=== PATIENT | male | born 1965 | race African-American/Black ===

== ENCOUNTER 2020-10-16 16:43 | Inpatient (IN) | payer OTHER ==
[2020-10-16] MEDS ORDERED: MAGNESIUM CITRATE 300 ML BOTTLE PO PRN (19:19)
[2020-10-16] MEDS ORDERED: diazePAM 5 MG TABLET PO PRN (19:19)
[2020-10-16] MEDS ORDERED: MENTHOL/PHENOL 1 EACH UD MM PRN (19:19)
[2020-10-16] MEDS ORDERED: ONDANSETRON *ODT* 4 MG TABLET SL PRN (19:19)
[2020-10-16] MEDS ORDERED: IBUPROFEN 400 MG TABLET (FP) PO PRN (19:19)
[2020-10-16] MEDS ORDERED: MAG HYDROX/AL HYDROX/SIMETH 30 ML UNIT-DOSE CUP PO PRN (19:19)
[2020-10-16] MEDS ORDERED: ACETAMINOPHEN 325 MG TABLET (FP) PO PRN ×2 (19:19)
[2020-10-16] MEDS ORDERED: NICOTINE 10 MG CARTRIDGE (INHALER) IH PRN (19:19)
[2020-10-16] MEDS ORDERED: MAGNESIUM HYDROX 2400MG/30ML ORAL SUSPENSION 30 ML CUP PO PRN (19:19)
[2020-10-16] MEDS ORDERED: BISMUTH SUBSALICYLATE 524 MG/30 ML PO PRN (19:19)
[2020-10-16] MEDS ORDERED: METHOCARBAMOL 500 MG TABLET PO PRN (19:19)
[2020-10-16] MEDS ORDERED: AZITHROMYCIN 250 MG TABLET PO ONE (19:55)
[2020-10-17] MEDS: THIAMINE HCL 100 MG TABLET (FP) PO SCH ×2 (01:48→22:32)
[2020-10-17] MEDS: PRENATAL VITAMINS W/ FOLIC ACID TABLET (FP) PO SCH ×2 (01:48→10:30)
[2020-10-17] MEDS: hydrOXYzine PAMOATE 25 MG CAPSULE (FP) PO SCH ×6 (01:48→22:32)
[2020-10-17] MEDS: MELATONIN 5 MG TABLETS PO SCH ×2 (01:48→22:32)
[2020-10-17] MEDS: diazePAM 5 MG TABLET PO SCH ×5 (01:49→22:32)
[2020-10-17 01:55] VITALS: BMI 19.5
[2020-10-17] MEDS: BICTEGRAV/EMTRICIT/TENOFOV (BIKTARVY) 50-200-25 MG TABLET PO SCH (10:31)
[2020-10-17 10:49] LABS: HEMATOCRIT 39.9 % (35.4-49); HEMOGLOBIN 13.7 GM/dL (11.7-16.9); MCH 31.9 pg (25.7-33.7); MCHC 34.3 g/dl (32.0-35.9); MEAN CELL VOLUME 92.8 fl (80-96); MEAN PLT VOLUME 8.6 fl (7.5-11.1); PLATELET COUNT 284 10^3/uL (134-434); RDW 13.1 % (11.9-15.9); WHITE BLOOD COUNT 6.5 K/mm3 (4.0-10.0)
[2020-10-17 10:55] LABS: CALCIUM 8.6 mg/dL (8.5-10.1)
[2020-10-17 10:56] LABS: ALBUMIN 3.1 g/dl (3.4-5.0); BLOOD UREA NITROGEN 13.8 mg/dL (7-18)
[2020-10-17 10:59] LABS: CREATININE 0.9 mg/dL (0.55-1.3)
[2020-10-17 11:01] LABS: BILIRUBIN,TOTAL 0.5 mg/dL (0.2-1); TOT PROT 6.4 g/dl (6.4-8.2)
[2020-10-17] MEDS: AZITHROMYCIN 250 MG TABLET PO SCH (13:12)
[2020-10-18] MEDS ORDERED: diazePAM 5 MG TABLET PO SCH (06:00)
[2020-10-18] MEDS: hydrOXYzine PAMOATE 25 MG CAPSULE (FP) PO SCH ×2 (06:28→10:16)
[2020-10-18] MEDS: BICTEGRAV/EMTRICIT/TENOFOV (BIKTARVY) 50-200-25 MG TABLET PO SCH (07:03)
[2020-10-18] MEDS: PRENATAL VITAMINS W/ FOLIC ACID TABLET (FP) PO SCH (10:16)
[2020-10-18] MEDS: AZITHROMYCIN 250 MG TABLET PO SCH (10:16)
[2020-10-18] MEDS ORDERED: MEGESTROL ACETATE 400 MG/10 ML UNIT DOSE CUP PO SCH (10:30)
[2020-10-18 12:43] VITALS: BP 138/95; PULSE 93; TEMP 96.9
[2020-10-19] MEDS ORDERED: diazePAM 5 MG TABLET PO SCH (06:00)
[2020-10-20] MEDS ORDERED: diazePAM 5 MG TABLET PO ONE (06:00)
== END 2020-10-18 15:08 | disposition home or self-care (01) | DRG 897 ==
LOC: YASAS 16:43 → Y3N 21:59
PROVIDERS: ADMIT Allergy & Immunology; ATTEND Allergy & Immunology
PROC: HZ2ZZZZ Detoxification Services for Substance Abuse Treatment (ICD-10-PCS; principal; 2020-10-16)
DX: F10.230 Alcohol dependence with withdrawal, uncomplicated (principal); F14.20 Cocaine dependence, uncomplicated; F15.20 Other stimulant dependence, uncomplicated; F11.20 Opioid dependence, uncomplicated; F12.20 Cannabis dependence, uncomplicated; F17.210 Nicotine dependence, cigarettes, uncomplicated; F91.8 Other conduct disorders; F41.9 Anxiety disorder, unspecified; F64.0 Transsexualism; F19.24 Other psychoactive substance dependence with psychoactive substance-induced mood disorder; F43.10 Post-traumatic stress disorder, unspecified; F31.9 Bipolar disorder, unspecified; Z21 Asymptomatic human immunodeficiency virus [HIV] infection status; Z91.19 Patient's noncompliance with other medical treatment and regimen; Z87.890 Personal history of sex reassignment; Z56.0 Unemployment, unspecified; Z59.0 Homelessness
CPT/HCPCS: 36415; 80053; 85027; 86780; 93005; 93010; C9803; U0003; U0005